=== PATIENT | female | born 1990 | race Caucasian/White ===

== ENCOUNTER 2023-10-30 13:14 | Emergency (ER) | payer BC, SELFPAY ==
[2023-10-30 13:14] VITALS: BMI 55.0
[2023-10-30 13:17] VITALS: BP 166/118
[2023-10-30 13:35] LABS: % Basophils 0.4 % (0-2); % Eosinophils 1.9 % (0-6); % Immature Granulocytes 1.4 % (0-0.5); % Lymphocytes 25.4 % (20.5-51.1); % Monocytes 6.8 % (1.7-9.3); % Neutrophils 64.1 % (42.2-75.2); Absolute Eosinophils 0.2 10^3/uL (0-0.7); Absolute Immature Granulocytes 0.1 10^3/uL (0-0.05); Absolute Lymphocytes 2.5 10^3/uL (1.2-3.4); Absolute Monocytes 0.7 10^3/uL (0.1-0.6); Absolute Neutrophils 6.2 10^3/uL (1.4-6.5); Hematocrit 36.2 % (37.0-47.0); Hemoglobin 12.8 g/dL (12.0-16.0); Mean Corp Hgb Conc. 35.4 g/dL (33.0-37.0); Mean Corpuscular Hgb 29.1 pg (27.0-31.0); Mean Corpuscular Volume 82.3 fL (81.0-99.0); Mean Platelet Volume 9.6 fL (7.4-10.4); Nucleated Red Blood Cells % 0 %; Platelet Count 305 10^3/uL (130-400); Red Cell Dist. Width 12.8 % (11.5-14.5); White Blood Cell Count 9.8 10^3/uL (4.8-10.8)
[2023-10-30 13:51] LABS: ALT (SGPT) 56 U/L (0-35); AST (SGOT) 40 U/L (14-36); Alkaline Phosphatase 83 U/L (38-126); Blood Urea Nitrogen 12 mg/dl (7-17); Calcium 8.9 mg/dl (8.4-10.2); Carbon Dioxide 27 mmol/L (22-30); Chloride 106 mmol/L (98-107); Estimated Creatinine Clearance > 125 ml/min; Glucose 91 mg/dl (70-99); Potassium 4.4 mmol/L (3.5-5.1); Sodium 138 mmol/L (135-145); Total Bilirubin 0.5 mg/dl (0.2-1.3); Total Protein 6.9 g/dl (6.3-8.2); eGFR > 60.00
[2023-10-30 14:03] LABS: Troponin I < 0.012 ng/ml
[2023-10-30 14:30] VITALS: BP 122/78
--- NOTE | 2023-10-30 14:51 | ED.GENMED ---
History of Present Illness
General
Chief Complaint: Chest Pain
Source: patient
Time Seen by Provider: 10/30/23 14:19
History of Present Illness
History of Present Illness:
33yoF with a history of anxiety and obesity presenting for evaluation of chest pain. Patient reports left sided chest discomfort that has been constant for the past 3 days. She describes the discomfort as a tightness sensation. Pain is
non-radiating. Nothing makes the pain better or worse. She denies any history of similar pains in the past. She also reports feeling short of breath. She called her PCP's office today and she was advised to go to the ED for evaluation. She is
otherwise asymptomatic and denies any dizziness, syncope, diaphoresis, nausea, vomiting, calf pain, leg swelling, fevers, cough. No OCP use or recent travel. No personal or family history of heart disease.
Past History
Past History
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
ED Past Surgical History: Cholecystectomy, and Tonsilectomy
Social History
Tobacco: Non-smoker
Alcohol: None
Personal: Single
Living: with family
Employment: Employed
Family History
Family History: Hypertension
Phy Exam
General Physical Exam
General Presentation: well appearing and no apparent distress
General age: appears stated age
General Skin: warm and dry
General Habitus: normal
General Mental: alert
General Hydration: appears well hydrated
Cardiovascular Exam
Cardiovascular Exam: regular rate/rhythm, no edema and no murmur
Pulmonary Exam
Pulmonary Exam: lungs clear, no respiratory distress, no crackles and no wheezing
Musculoskeletal Exam
Musculoskeletal Exam: no edema
Skin Exam
Skin Exam: normal color and warm/dry
Psychiatric Exam
Psychiatric Exam: normal mood/affect
Scores
Heart Score for Chest Pain Patients
STEMI patient?: No
History: Slightly or Non-Suspicious
ECG: Normal
Age: </= 45 years
Risk Factors: 1 or 2 Risk Factors
Troponin: </= Normal Limit
Heart Score for Chest Pain Patients: 1
Heart Score Risk: 2.5% MACE over next 6 weeks
Course
Orders/Labs/Results
Orders:
Orders
10/30/23 13:16
EKG [Electrocardiogram (*1)] Stat
Reason for Study: Chest Pain
EKG- Treatment ONCE
10/30/23 13:22
CXR2 [CR Chest - 2 Views ] Urgent
Comment:
Reason For Exam: chest pain
10/30/23 13:23
Complete Blood Count/With Diff Urgent
Comprehensive Metabolic Panel Urgent
Troponin I Urgent
Abnormal Lab Results
10/30/23
13:23
Hct 36.2 L %
(37.0-47.0)
Abs Immat Gran (auto) 0.1 H 10^3/uL
(0-0.05)
Absolute Monos (auto) 0.7 H 10^3/uL
(0.1-0.6)
Immature Gran % 1.4 H %
(0-0.5)
AST 40 H U/L
(14-36)
ALT 56 H U/L
(0-35)
10/30/23 13:23
10/30/23 13:23
Vital Signs
Initial and Last Documented VS:
Initial Vital Signs
Temp Pulse Resp BP Pulse Ox
98.2 F 70 16 166/118 99
10/30/23 13:17 10/30/23 13:17 10/30/23 13:17 10/30/23 13:17 10/30/23 13:17
Last Documented Vital Signs
Temp Pulse Resp BP Pulse Ox
98.2 F 80 20 122/78 98
10/30/23 13:17 10/30/23 14:30 10/30/23 14:30 10/30/23 14:30 10/30/23 14:30
MDM/Problems Addressed
Differential Diagnosis Includes:
33yoF here with L sided chest tightness x 3 days. Also c/o SOB. No history of heart disease. She is hypertensive in triage with otherwise normal vitals. She is well appearing in no distress and exam is reassuring. Differential diagnosis includes
but is not limited to: Musculoskeletal, pneumonia, pneumothorax, anxiety, less likely ACS. PERC negative, PE is clinically ruled out.
Initial ED plan: Check cardiac labs, EKG, and chest x-ray.
*EKG
Interpreted by ED Provider?: Yes
EKG Intrepretation Date: 10/30/23
Interpretation: normal
Heart Rate: 69
Rate: normal
Rhythm: sinus
[place]: normal axis
Interval: normal interval
QRS Pattern: normal QRS
Ischemia: no ischemia
*Critical Care Note
Total Time (30-74mins, 75-104mins- exclusive of procedures): Not Applicable
Update Note
Update Note:
Labs unremarkable. EKG shows NSR without ischemic changes and troponin is normal. CXR appears clear. HEART score is 1 based on obesity risk factor. BP improved on recheck. She is stable for discharge. Advised close PCP f/u and ED return precautions
discussed. Patient expressed understanding and is agreeable to plan. Patient discharged in stable condition.
ED Attending Note
-
Portions of this chart may have been created with voice recognition software.� Occasional wrong word or��sound alike� substitutions may have occurred due to the inherent limitations of voice recognition software.
Discharge Plan
Departure
Patient Disposition: Home (Routine Discharge)
Date of Disposition: 10/30/23
Time of Disposition: 14:53
Patient with high blood pressure during this ER visit?: Yes
Discharge Problem:
Chest tightness
Instructions: Chest pain - Discharge instructions
Prescriptions:
No Action
PNV cmb#[id number] fumarate-FA [] 1 EACH tablet
1 ea PO DAILY
acetaminophen 325 MG tablet
650 mg PO Q4HPRN PRN (Reason: mild pain) 0RF
ibuprofen 600 MG tablet
600 mg PO Q4HPRN PRN (Reason: cramps) 0RF
Referrals:
Beatrice Devine CRNP [Family Provider] -
Saira Aquino MD [Active] -
Activity Restrictions/Additional Instructions:
Please follow-up with your family doctor and cardiology. Return to the ER immediately with any new or worsening symptoms.
Interventions
Interventions:
*Risk Screen - Suicide Last Done: 10/30/23 13:17
*General Assessment Last Done: 10/30/23 14:35
*Neglect/Abuse Screening Last Done: 10/30/23 13:17
*Nursing Disposition Last Done: 10/30/23 15:07
ED- Cardiac Assessment Last Done: 10/30/23 14:35
Discharge Date and Time
Discharge Date/Time: 10/30/23 15:07
Print Language: AZERI
== END 2023-10-30 15:07 | disposition home or self-care (01) ==
LOC: EMR 13:14
PROVIDERS: Emergency Medicine; EMERGENCY PHYSICIAN Emergency Medicine; FAMILY PHYSICIAN Nurse Practitioner Family
DX: R07.89 Other chest pain (principal); F41.9 Anxiety disorder, unspecified; E66.9 Obesity, unspecified; R06.02 Shortness of breath; A69.20 Lyme disease, unspecified; Z82.49 Family history of ischemic heart disease and other diseases of the circulatory system; Z90.49 Acquired absence of other specified parts of digestive tract
CPT/HCPCS: 99283; 71046; 80053; 84484; 85025; 93005